=== PATIENT | male | born 1960 | race Caucasian/White ===

== ENCOUNTER → 2017-02-17 | Outpatient (CLI) | payer BC ==
[~2017-02-17] MED LIST: ACYCLOVIR800 MG PO; ATORVASTATIN CA40 M1 PO
[2017-02-17 10:40] LABS: CREATININE 1.36 mg/dL (0.70-1.30)
== END | disposition home or self-care (01) ==
LOC: LAB 10:12 → CT 10:30
PROVIDERS: Internal Medicine
DX: R51 Headache (principal); H53.9 Unspecified visual disturbance

== ENCOUNTER 2017-08-10 21:38 | Inpatient (IN) | payer BC ==
[~2017-08-10] VITALS: Ht 185 cm; Wt 105.0 kg
--- NOTE | ~2017-08-10 | WRIGHTHP ---
[place], [place] PATIENT HISTORY AND PHYSICAL EXAM NAME: ROCKY COSTA [facility] #: [id number] UNIT #: [id number] ROOM: 407 DOCTOR: KIANA GAN MD BIRTHDATE: [birth year] DOS: 08/11/2017 HISTORY OF PRESENT ILLNESS: The patient is a 57-year-old gentleman with a past medical history of mixed hyperlipidemia, vitamin D deficiency. The patient presented to the Emergency Department when he was getting a bowel prep for his colonoscopy with acute right lower quadrant pain. The patient was seen in the Emergency Department and found to have acute appendicitis on CT of the abdomen and pelvis, without any periappendiceal abscess or free intraperitoneal air. The patient was taken for surgery by Dr. Grace and appendectomy and removal of a small umbilical hernia was performed. Following surgery, the patient is complaining of severe abdominal pain and says that if he is not getting present medications for pain, which he is getting at the hospital and he is sent home, he will have to come right back to the Emergency Department. The patient also has been nauseous off and on. No chest pain. No shortness of breath. No GI or urinary symptoms'. REVIEW OF SYSTEMS: LUNGS: No increasing shortness of breath. GASTROINTESTINAL: The patient with recurrent nausea, vomiting. No diarrhea or constipation. CARDIOVASCULAR: No chest pains or palpitations. SOCIAL HISTORY: The patient denies smoking cigarettes, alcohol and drug abuse. FAMILY HISTORY: Noncontributory. ALLERGIES: No known drug allergies. PRESENT MEDICATIONS: Zofran, hydroxyzine, metoclopramide, Dilaudid, Vicodin and Zosyn. PHYSICAL EXAMINATION: GENERAL: Alert, oriented x 3, in no visible distress. VITAL SIGNS: Blood pressure 122/68, heart rate of 67 beats per minute, breathing 16 times per minute, afebrile. HEENT AND NECK: Extraocular movements are intact. Sclerae are anicteric. Oral mucosa is moist and clean. No obvious facial weakness. Neck is supple without any lymphadenopathy. No thyromegaly. No JVD. No carotid arterial bruits. LUNGS: Clear to auscultation. No wheezing. No rhonchi. CARDIOVASCULAR SYSTEM: Heart rate is regular in rate and rhythm. S1 and S2 normally audible. No significant murmur or any other abnormal cardiac sounds. ABDOMEN: Tenderness in the abdomen all over. No rigidity, guarding or rebound tenderness. Bowel sounds are present. EXTREMITIES: Without significant cyanosis or edema. Warm to touch. CENTRAL NERVOUS SYSTEM: Alert and oriented x 3. Cranial nerves II-XII are intact. Speech is normal. The patient is able to move all extremities. Normal muscle strength. Deep tendon reflexes are equal on both sides. Plantars were downgoing. [place], [place] PATIENT HISTORY AND PHYSICAL EXAM NAME: ROCKY COSTA UNIT #: [id number] ROOM: 407 DOCTOR: ELVIA CARABALLO,KIANA Kimball BIRTHDATE: [birth year] LABORATORY DATA: Chest x-ray without any acute abnormality, normal. White cell count elevated to 18,000 on CBC, but normal serum electrolytes, although sugar was elevated to 157. IMPRESSION AND PLAN: 1. The patient with acute appendicitis, status post appendectomy by Dr. Grace, apparently uncomplicated. 2. Small umbilical hernia repair. 3. Significant for surgical pains. We will keep the patient overnight and he will receive Dilaudid for pain and Zofran for nausea and vomiting and I will encourage him to ambulate in the hallways and if he is doing much better, he can be discharged to home tomorrow. 4. Repeat CBC and serum electrolytes in the morning and I will continue Zosyn for now because he did have an infected appendix with leukocytosis yesterday. KIANA GAN MD CM:HISPHYS:PATIENT HISTORY AND PHYSICAL EXAMINATION 26 45 KIANA GAN MD 08/11/171844 interface
--- NOTE | ~2017-08-10 | O ---
[place], [place] OPERATIVE NOTE [id number] UNIT #: [id number] ROOM: 407 DOCTOR: WASHINGTON GRACE MD BIRTHDATE: [birth year] DOS: 08/11/2017 PREOPERATIVE DIAGNOSIS: Acute appendicitis. POSTOPERATIVE DIAGNOSIS: Acute appendicitis. PROCEDURE: Laparoscopic appendectomy. SURGEON: Washington Grace MD [employer] SUPERVISOR: MS4. ANESTHESIA: GET. INDICATIONS: This is a 57-year-old gentleman admitted with acute appendicitis who is here for the above-mentioned procedure. The procedure and its complications were explained to the patient in detail preoperatively. Complications that were discussed included but were not limited to bleeding, infection, hematoma/seroma/abscess formation, prolonged postoperative pain, damage to underlying vital structures and incisional hernia formation. He agreed to proceed. DESCRIPTION OF PROCEDURE: After identifying the patient, the patient was brought to the operating suite and laid in the supine position. After induction of general anesthesia, a Patton catheter was placed in the urinary bladder and left upper extremity was tucked to the patient's side. The parts were then painted and draped in the usual sterile fashion. A time-out procedure was called. An incision across the umbilicus was made in a transverse fashion. The skin and the subcutaneous tissue were incised. The umbilical area was found to have a small umbilical hernia with the contents being preperitoneal fat. This fat was excised with the help of electrocautery and sent for histopathological diagnosis. Thereafter, the edges of the fascia were secured with the help of 0 Vicryl stay sutures on either side. A 12 mm Eleazar port was introduced into the peritoneal cavity and a pneumoperitoneum was created. Under direct vision, a left lower quadrant incision of 10 mm and suprapubic incision of 5 mm was made and appropriate size ports were introduced. The patient was placed in Trendelenburg, right side up position in order to better visualize the appendix. The appendix was visualized right next to the cecum and it was found to be acutely inflamed. It was held up with the help of an Endo [place] forceps and the base of the appendix as well as the mesoappendix were stapled across with the help of an Endo-TIERNEY (vascular) stapler, thus the appendix was then placed in an EndoCatch bag and removed from the peritoneal cavity and sent for histopathological diagnosis. Thereafter, the appendicular stump was visualized and there was no bleeding seen. The suprapubic and the left lower quadrant ports were then removed, and there was no bleeding seen. The umbilical port was also removed and the 2 stay sutures were tied together as well as additional sutures were taken with 0 Vicryl in order to close the fascial defect. Thereafter, the edges of the skin were infiltrated with 1% plain lidocaine and the edges were approximated with the help of 4-0 Vicryl in a subcuticular running fashion. There were no complications. The patient was extubated [place], [place] OPERATIVE NOTE NAME: ROCKY COSTA UNIT #: [id number] ROOM: 407 DOCTOR: WASHINGTON GRACE MD BIRTHDATE: [birth year] uneventfully and the Patton catheter was also removed and he was brought back to the recovery in a stable fashion. There were no complications. Dr. Washington Grace, the attending surgeon, was present throughout the operating case. Washington Grace MD CM:OPRECORD:OPERATIVE NOTE [id number] WASHINGTON GRACE MD 08/11/17 0933 interface
[2017-08-10 21:41] VITALS: BP 149/96
[2017-08-10 22:16] LABS: BASO % 0.2 % (0.0-1.0); EOS % 0.1 % (1.0-4.0); HEMATOCRIT 49.1 % (42.0-52.0); HEMOGLOBIN 16.6 g/dl (14.0-18.0); LYMPH # 1.1 10*3/uL (1.3-4.4); LYMPH % 6.3 % (27.0-41.0); MEAN CELL VOLUME 93.7 fl (80.0-94.0); MEAN CORPUSCULAR HGB 31.7 pg (27.0-31.0); MEAN CORPUSCULAR HGB CONC 33.8 g/dl (33.0-37.0); MEAN PLATELET VOLUME 11.7 fl (9.6-12.3); MONO # 0.9 10*3/uL (0.1-1.0); MONO % 4.7 % (3.0-9.0); NEUT # 15.9 10*3/uL (2.3-7.9); NEUT % 88.3 % (47.0-73.0); PLATELET COUNT AUTOMATED 202 10*3/uL (130-400); RED BLOOD COUNT 5.24 10*6/uL (4.50-5.90); RED CELL DISTRI WIDTH 13.4 % (0-14.5)
[2017-08-10 22:32] LABS: ALBUMIN 4.2 gm/dl (3.1-4.5); ALKALINE PHOSPHATASE 90 U/L (45-117); BUN 15 mg/dl (7-24); CHLORIDE 102 mmol/L (98-107); CREATININE 1.27 mg/dL (0.70-1.30); LIPASE 125 U/L (73-393); POTASSIUM 4.4 mmol/L (3.5-5.1); SGOT/AST 27 IU/L (3-35); SGPT/ALT 42 U/L (12-78); SODIUM 135 mmol/L (136-145); TOTAL PROTEIN 7.7 gm/dL (6.4-8.2)
[2017-08-10 22:33] VITALS: BP 140/84
[2017-08-10 23:48] VITALS: BP 129/74
[2017-08-11] VITALS (16 sets, daily range): BP systolic 102–147; BP diastolic 52–82
[2017-08-11 01:03] LABS: INTERNATIONAL NORM RATIO 0.9 (2.0-3.5)
[2017-08-12] VITALS: BP 150/60
[2017-08-12 07:38] LABS: BASO % 0.4 % (0.0-1.0); EOS # 0.2 10*3/uL (0.0-0.4); EOS % 2.5 % (1.0-4.0); LYMPH # 1.7 10*3/uL (1.3-4.4); MEAN CELL VOLUME 94.8 fl (80.0-94.0); MEAN CORPUSCULAR HGB 31.4 pg (27.0-31.0); MEAN CORPUSCULAR HGB CONC 33.1 g/dl (33.0-37.0); MONO # 0.6 10*3/uL (0.1-1.0); MONO % 7.9 % (3.0-9.0); NEUT # 5.3 10*3/uL (2.3-7.9); NEUT % 66.9 % (47.0-73.0); PLATELET COUNT AUTOMATED 167 10*3/uL (130-400); RED BLOOD COUNT 4.43 10*6/uL (4.50-5.90); WHITE BLOOD COUNT 7.9 10*3/uL (4.8-10.8)
[2017-08-12 07:39] LABS: HEMOGLOBIN 13.9 g/dl (14.0-18.0)
[2017-08-12 07:49] LABS: BUN 12 mg/dl (7-24); CHLORIDE 106 mmol/L (98-107); CREATININE 1.23 mg/dL (0.70-1.30); POTASSIUM 3.8 mmol/L (3.5-5.1); SODIUM 141 mmol/L (136-145)
[2017-08-12 08:00] VITALS: BP 127/84
== END 2017-08-12 13:30 | disposition home or self-care (01) | DRG 343 ==
LOC: ED 21:38 → 4E 08-11 00:50 → EDHOLD 08-11 00:50 → 4E 08-11 01:01
PROVIDERS: Internal Medicine; Physician Assistant
DX: K37 Unspecified appendicitis (principal); E78.5 Hyperlipidemia, unspecified; Z72.89 Other problems related to lifestyle; K35.80 Unspecified acute appendicitis; Z79.899 Other long term (current) drug therapy; K44.9 Diaphragmatic hernia without obstruction or gangrene

== ENCOUNTER → 2018-04-06 | Day surgery (SDC) | payer OTHER ==
[~2018-04-06] VITALS: Ht 187.9 cm; Wt 97.5 kg
--- NOTE | ~2018-04-06 | PROC NOTE ---
[place], [place] PROCEDURE NOTE NAME: ROCKY COSTA UNIT #: [id number] ROOM: DOCTOR: WASHINGTON GRACE MD BIRTHDATE: [birth year] DOS: 04/06/2018 PREOPERATIVE DIAGNOSIS: Screening examination, history of colon polyps. POSTOPERATIVE DIAGNOSIS: Normal colon. PROCEDURE: Colonoscopy. ENDOSCOPIST: Washington Grace MD TRUCK DRIVER HEAVY: FAMILIA. ANESTHESIA: MAC. INDICATIONS: This is a 57-year-old male who had a history of previous colonoscopy with polypectomy done in the past who is here for the above-mentioned procedure. The procedure and its complications were explained to the patient in detail preoperatively. Complications that were discussed included but were not limited to, bleeding, colon perforation, missed lesions, and prolonged pain. He agreed to proceed. DESCRIPTION OF PROCEDURE: After identifying the patient, the patient was brought to the endoscopy suite and placed in left lateral position. After IV sedation was administered, a timeout procedure was called and a digital rectal exam was performed. This was within normal limits. An adult colonoscope was then introduced into the anal canal and advanced sequentially into the rectum, sigmoid colon, descending colon, transverse colon and ascending colon up to the cecum. Upon reaching the cecum, the scope was withdrawn. The prep was found to be optimal. Upon The total withdrawal time at this point now from the cecum was approximately 8 minutes. There were no lesions that could be identified in the entirety of the colon. There was found to be minimal internal hemorrhoids which were uncomplicated on retroflexion of the scope in the rectum. The scope was withdrawn and the patient was brought back to the recovery room in stable fashion. There were no complications. Dr. Washington Grace, the attending endoscopist, was present throughout the operating case. Based on these findings, the patient is recommended to have another colonoscopy in 10 years or sooner should he find any new symptoms. These findings were discussed with the patient's family in the recovery room. [place], [place] PROCEDURE NOTE NAME: ROCKY COSTA UNIT #: [id number] ROOM: DOCTOR: WASHINGTON GRACE MD BIRTHDATE: [birth year] Washington Grace MD CM:PROCNOTE:PROCEDURE NOTE 0821 1720 WASHINGTON GRACE MD
[2018-04-06 07:21] VITALS: BP 139/85
[2018-04-06 08:15] VITALS: BP 106/70
[2018-04-06 08:21] VITALS: BP 115/68
[2018-04-06 08:43] VITALS: BP 120/77
== END | disposition home or self-care (01) ==
LOC: SDC 04-03 08:45
DX: Z12.11 Encounter for screening for malignant neoplasm of colon (principal); Z86.010 Personal history of colon polyps; K64.8 Other hemorrhoids; E78.5 Hyperlipidemia, unspecified; E78.00 Pure hypercholesterolemia, unspecified; M10.9 Gout, unspecified; Z98.890 Other specified postprocedural states; Z90.49 Acquired absence of other specified parts of digestive tract; Z79.899 Other long term (current) drug therapy; Z87.891 Personal history of nicotine dependence

== ENCOUNTER 2018-11-19 06:47 | Emergency (ER) | payer OTHER ==
[~2018-11-19] VITALS: Wt 90.7 kg
--- NOTE | ~2018-11-19 | EKG ---
[place], [place] ELECTROCARDIOGRAM REPORT NAME: ROCKY COSTA UNIT #: [id number] ROOM: DOCTOR: EPIPHANY DRAFT REPORT BIRTHDATE: [birth year] [facility] Test Date: 2018-11-19 Test Time: 09:55:03 Pat Name: ROCKY COSTA Department: Room: Gender: Mysql Database Developer: : 1960 Requested By: JAZMINE PETIT Order Number: [id number] Reading MD: Ashlyn Ashley MD Measurements Intervals [place] Rate: 64 P: 23 NM: 164 QRS: -27 QRSD: 101 T: 21 QT: 416 QTc: 430 Interpretive Statements Sinus rhythm Borderline left axis deviation Electronically Signed On 11-20-2018 13:50:07 PDT by Ashlyn Ashley MD CM:EKGRPT:ELECTROCARDIOGRAM REPORT [id number] JAZMINE HORTON DRAFT REPORT JAZMINE PETIT DO
--- NOTE | ~2018-11-19 | EKG ---
[place], [place] ELECTROCARDIOGRAM REPORT NAME: ROCKY COSTA UNIT #: [id number] ROOM: DOCTOR: EPIPHANY DRAFT REPORT BIRTHDATE: [birth year] [facility] Test Date: 2018-11-19 Test Time: 06:50:25 Pat Name: ROCKY COSTA Department: Room: Gender: Lap Checker: : 1960 Requested By: JAZMINE PETIT Order Number: [id number] Reading MD: Ashlyn Ashley MD Measurements Intervals [place] Rate: 76 P: 56 SD: 158 QRS: -30 QRSD: 99 T: 38 QT: 404 QTc: 455 Interpretive Statements Sinus rhythm Left axis deviation Electronically Signed On 11-20-2018 13:49:58 PDT by Ashlyn Ashley MD CM:EKGRPT:ELECTROCARDIOGRAM REPORT [id number] JAZMINE HORTON DRAFT REPORT JAZMINE PETIT DO
[2018-11-19 07:06] LABS: BASO % 0.4 % (0.0-1.0); EOS # 0.2 10*3/uL (0.0-0.4); EOS % 2.9 % (1.0-4.0); HEMATOCRIT 51.2 % (42.0-52.0); LYMPH # 1.9 10*3/uL (1.3-4.4); LYMPH % 25.2 % (27.0-41.0); MEAN CELL VOLUME 95.7 fl (80.0-94.0); MEAN CORPUSCULAR HGB 31.8 pg (27.0-31.0); MEAN CORPUSCULAR HGB CONC 33.2 g/dl (33.0-37.0); MEAN PLATELET VOLUME 12.1 fl (9.6-12.3); MONO # 1.2 10*3/uL (0.1-1.0); MONO % 15.4 % (3.0-9.0); NEUT # 4.2 10*3/uL (2.3-7.9); PLATELET COUNT AUTOMATED 236 10*3/uL (130-400); RED BLOOD COUNT 5.35 10*6/uL (4.50-5.90); RED CELL DISTRI WIDTH 13.3 % (0-14.5); WHITE BLOOD COUNT 7.5 10*3/uL (4.8-10.8)
[2018-11-19 07:17] LABS: INTERNATIONAL NORM RATIO 0.9 (2.0-3.5)
[2018-11-19 07:25] LABS: ALBUMIN 3.4 gm/dl (3.1-4.5); BUN 15 mg/dl (7-24); CHLORIDE 107 mmol/L (98-107); POTASSIUM 3.6 mmol/L (3.5-5.1); SGOT/AST 26 IU/L (3-35); SGPT/ALT 36 U/L (12-78); SODIUM 138 mmol/L (136-145); TOTAL PROTEIN 7.1 gm/dL (6.4-8.2)
[2018-11-19 07:28] LABS: ALKALINE PHOSPHATASE 105 U/L (45-117)
== END 2018-11-19 11:32 | disposition short-term general hospital (02) ==
LOC: ED 06:47
PROVIDERS: Student in an Organized Health Care Education/Training Program
DX: R07.9 Chest pain, unspecified (principal); R79.89 Other specified abnormal findings of blood chemistry; M79.602 Pain in left arm; M54.2 Cervicalgia; R51 Headache; E78.5 Hyperlipidemia, unspecified; Z79.899 Other long term (current) drug therapy

== ENCOUNTER → 2018-11-27 | Outpatient (CLI) | payer OTHER | END | disposition home or self-care (01) | LOC: RAD 11:24 | DX: J18.9 Pneumonia, unspecified organism (principal); R07.9 Chest pain, unspecified ==

== ENCOUNTER → 2019-06-20 | Outpatient (CLI) | payer OTHER ==
[2019-06-20 16:09] LABS: BASO % 0.4 % (0.0-1.0); EOS # 0.1 10*3/uL (0.0-0.4); EOS % 0.6 % (1.0-4.0); HEMATOCRIT 48.3 % (42.0-52.0); LYMPH # 1.9 10*3/uL (1.3-4.4); LYMPH % 23.3 % (27.0-41.0); MEAN CELL VOLUME 99.2 fl (80.0-94.0); MEAN CORPUSCULAR HGB 32.9 pg (27.0-31.0); MEAN CORPUSCULAR HGB CONC 33.1 g/dl (33.0-37.0); MEAN PLATELET VOLUME 11.8 fl (9.6-12.3); MONO # 0.9 10*3/uL (0.1-1.0); MONO % 11.3 % (3.0-9.0); NEUT # 5.2 10*3/uL (2.3-7.9); NEUT % 63.9 % (47.0-73.0); PLATELET COUNT AUTOMATED 259 10*3/uL (130-400); RED BLOOD COUNT 4.87 10*6/uL (4.50-5.90); RED CELL DISTRI WIDTH 13.6 % (0-14.5); WHITE BLOOD COUNT 8.2 10*3/uL (4.8-10.8)
[2019-06-20 16:44] LABS: ALBUMIN 3.9 gm/dl (3.1-4.5); BUN 15 mg/dl (7-24); CHLORIDE 108 mmol/L (98-107); CHOLESTEROL 156 mg/dL (<200); CREATININE 1.24 mg/dL (0.70-1.30); POTASSIUM 4.2 mmol/L (3.5-5.1); SGOT/AST 20 IU/L (3-35); SGPT/ALT 38 U/L (12-78); SODIUM 140 mmol/L (136-145); URIC ACID 7.5 mg/dL (3.5-7.2)
[2019-06-20 16:52] LABS: ALKALINE PHOSPHATASE 81 U/L (45-117); FREE T4 0.91 ng/dl (0.76-1.46); HDL CHOLESTEROL 61 mg/dl (40-60); LDL CHOLESTEROL 62 mg/dL (9-159); TOTAL PROTEIN 7.3 gm/dL (6.4-8.2); TRIGLYCERIDES 167 mg/dl (<150); VLDL CHOLESTEROL 33 mg/dL (6-40)
[2019-06-20 17:00] LABS: VITAMIN D, 25-HYDROXY 42.2 ng/mL (30-100)
== END | disposition home or self-care (01) ==
LOC: LAB 15:06
PROVIDERS: Internal Medicine
DX: Z12.5 Encounter for screening for malignant neoplasm of prostate (principal); Z13.1 Encounter for screening for diabetes mellitus; Z00.00 Encounter for general adult medical examination without abnormal findings; I10 Essential (primary) hypertension; E78.2 Mixed hyperlipidemia; M10.072 Idiopathic gout, left ankle and foot; E55.9 Vitamin D deficiency, unspecified

== ENCOUNTER → 2019-06-26 | Outpatient (CLI) | payer OTHER | END | disposition home or self-care (01) | LOC: RAD 15:56 | DX: M19.041 Primary osteoarthritis, right hand (principal) ==

== ENCOUNTER → 2020-11-03 | Outpatient (CLI) | payer BC ==
[2020-11-03 07:56] LABS: BASO # 0.1 10*3/uL (0.0-0.1); BASO % 0.7 % (0.0-1.0); EOS # 0.1 10*3/uL (0.0-0.4); EOS % 1.4 % (1.0-4.0); HEMATOCRIT 49.2 % (42.0-52.0); LYMPH # 1.9 10*3/uL (1.3-4.4); LYMPH % 27.5 % (27.0-41.0); MEAN CORPUSCULAR HGB 31.6 pg (27.0-31.0); MEAN CORPUSCULAR HGB CONC 32.5 g/dl (33.0-37.0); MEAN PLATELET VOLUME 11.6 fl (9.6-12.3); MONO # 0.9 10*3/uL (0.1-1.0); MONO % 13.1 % (3.0-9.0); NEUT # 3.9 10*3/uL (2.3-7.9); NEUT % 56.9 % (47.0-73.0); PLATELET COUNT AUTOMATED 243 10*3/uL (130-400); RED BLOOD COUNT 5.07 10*6/uL (4.50-5.90); RED CELL DISTRI WIDTH 13.5 % (0-14.5); WHITE BLOOD COUNT 6.9 10*3/uL (4.8-10.8)
[2020-11-03 08:17] LABS: BUN 11 mg/dl (7-24); CHLORIDE 109 mmol/L (98-107); CHOLESTEROL 152 mg/dL (<200); CREATININE 1.07 mg/dL (0.70-1.30); LDL CHOLESTEROL 62 mg/dL (9-159); SGOT/AST 27 IU/L (3-35); SGPT/ALT 37 U/L (12-78); SODIUM 136 mmol/L (136-145); TRIGLYCERIDES 215 mg/dl (<150)
== END | disposition home or self-care (01) ==
LOC: LAB 07:29
PROVIDERS: ATTEND Internal Medicine Cardiovascular Disease
DX: E78.5 Hyperlipidemia, unspecified (principal); I24.8 Other forms of acute ischemic heart disease

== ENCOUNTER → 2021-07-15 | Outpatient (CLI) | payer OTHER ==
[2021-07-15 13:35] LABS: BASO % 0.5 % (0.0-1.0); EOS # 0.1 10*3/uL (0.0-0.4); EOS % 1.2 % (1.0-4.0); HEMATOCRIT 47.1 % (42.0-52.0); LYMPH # 2.1 10*3/uL (1.3-4.4); LYMPH % 31.3 % (27.0-41.0); MEAN CELL VOLUME 94.4 fl (80.0-94.0); MEAN CORPUSCULAR HGB 31.5 pg (27.0-31.0); MEAN CORPUSCULAR HGB CONC 33.3 g/dl (33.0-37.0); MEAN PLATELET VOLUME 11.4 fl (9.6-12.3); MONO # 0.7 10*3/uL (0.1-1.0); MONO % 10.5 % (3.0-9.0); NEUT # 3.7 10*3/uL (2.3-7.9); NEUT % 56.2 % (47.0-73.0); PLATELET COUNT AUTOMATED 240 10*3/uL (130-400); RED BLOOD COUNT 4.99 10*6/uL (4.50-5.90); RED CELL DISTRI WIDTH 13.4 % (0-14.5); WHITE BLOOD COUNT 6.6 10*3/uL (4.8-10.8)
[2021-07-15 13:53] LABS: ALKALINE PHOSPHATASE 84 U/L (45-117); BUN 15 mg/dl (7-24); CHLORIDE 108 mmol/L (98-107); CHOLESTEROL 144 mg/dL (<200); CREATININE 1.28 mg/dL (0.70-1.30); FREE T4 0.99 ng/dl (0.76-1.46); LDL CHOLESTEROL 61 mg/dL (9-159); POTASSIUM 3.9 mmol/L (3.5-5.1); SGOT/AST 25 IU/L (3-35); SGPT/ALT 43 U/L (12-78); SODIUM 140 mmol/L (136-145); TOTAL PROTEIN 6.9 gm/dL (6.4-8.2); TRIGLYCERIDES 165 mg/dl (<150); URIC ACID 6.7 mg/dL (3.5-7.2)
[2021-07-15 15:16] LABS: VITAMIN D, 25-HYDROXY 36.6 ng/mL (30-100)
== END | disposition home or self-care (01) ==
LOC: LAB 13:17
PROVIDERS: ATTEND Internal Medicine
DX: Z13.1 Encounter for screening for diabetes mellitus (principal); Z12.5 Encounter for screening for malignant neoplasm of prostate; Z00.00 Encounter for general adult medical examination without abnormal findings; M1A.9XX0 Chronic gout, unspecified, without tophus (tophi); E78.2 Mixed hyperlipidemia; E55.9 Vitamin D deficiency, unspecified

== ENCOUNTER → 2021-08-30 | Outpatient (CLI) | payer OTHER | END | disposition home or self-care (01) | LOC: ORTHO 01:40 | PROVIDERS: ATTEND Orthopaedic Surgery | DX: M25.561 Pain in right knee (principal) ==

== ENCOUNTER → 2021-10-14 | Day surgery (SDC) | payer OTHER ==
[~2021-10-14] VITALS: Ht 187.9 cm; Wt 98.9 kg
[~2021-10-14] MED LIST changes: +ASPIRIN81 M1 PO; +DAILY VALUE1 EACH PO; +HYDROCODONE-AC1 EAC1 PO; +VITAMIN D350 MCG PO
[2021-10-14 06:26] VITALS: BP 131/80
[2021-10-14 08:36] VITALS: BP 123/77
[2021-10-14 08:51] VITALS: BP 111/57
[2021-10-14 09:06] VITALS: BP 122/2; BP 122/72
[2021-10-14 09:21] VITALS: BP 142/75
[2021-10-14 09:36] VITALS: BP 139/76
== END | disposition home or self-care (01) ==
LOC: SDC 10-11 14:00
PROVIDERS: ATTEND Orthopaedic Surgery
DX: S83.241A Other tear of medial meniscus, current injury, right knee, initial encounter (principal); M87.061 Idiopathic aseptic necrosis of right tibia; E78.00 Pure hypercholesterolemia, unspecified; M10.9 Gout, unspecified; Z87.891 Personal history of nicotine dependence; Z98.890 Other specified postprocedural states; X58.XXXA Exposure to other specified factors, initial encounter; Y93.89 Activity, other specified; Y92.89 Other specified places as the place of occurrence of the external cause; Y99.8 Other external cause status

== ENCOUNTER 2021-11-24 10:27 | Observation (INO) | payer OTHER ==
[~2021-11-24] VITALS: Ht 188 cm; Wt 96.2 kg
[2021-11-24] VITALS (7 sets, daily range): BP systolic 129–162; BP diastolic 64–100
[2021-11-24 11:34] LABS: BASO # 0.1 10*3/uL (0.0-0.1); BASO % 0.5 % (0.0-1.0); EOS # 0.2 10*3/uL (0.0-0.4); EOS % 2.4 % (1.0-4.0); HEMATOCRIT 48.9 % (42.0-52.0); LYMPH # 1.5 10*3/uL (1.3-4.4); LYMPH % 16.5 % (27.0-41.0); MEAN CELL VOLUME 94.2 fl (80.0-94.0); MEAN CORPUSCULAR HGB 31.4 pg (27.0-31.0); MEAN CORPUSCULAR HGB CONC 33.3 g/dl (33.0-37.0); MEAN PLATELET VOLUME 11.9 fl (9.6-12.3); MONO # 0.9 10*3/uL (0.1-1.0); MONO % 9.5 % (3.0-9.0); NEUT # 6.6 10*3/uL (2.3-7.9); NEUT % 70.4 % (47.0-73.0); PLATELET COUNT AUTOMATED 272 10*3/uL (130-400); RED BLOOD COUNT 5.19 10*6/uL (4.50-5.90); RED CELL DISTRI WIDTH 13.8 % (0-14.5); WHITE BLOOD COUNT 9.4 10*3/uL (4.8-10.8)
[2021-11-24 12:08] LABS: ACT PARTIAL THROMBO TIME 27.3 SECONDS (20.0-32.1)
[2021-11-24 12:15] LABS: ALKALINE PHOSPHATASE 111 U/L (45-117); BUN 13 mg/dl (7-24); CHLORIDE 106 mmol/L (98-107); CREATININE 1.15 mg/dL (0.70-1.30); POTASSIUM 4.3 mmol/L (3.5-5.1); SGOT/AST 22 IU/L (3-35); SGPT/ALT 31 U/L (12-78); SODIUM 137 mmol/L (136-145); TOTAL PROTEIN 7.1 gm/dL (6.4-8.2)
[2021-11-25] VITALS (8 sets, daily range): BP systolic 115–147; BP diastolic 70–93
[2021-11-25 08:04] LABS: BASO % 0.4 % (0.0-1.0); EOS # 0.2 10*3/uL (0.0-0.4); EOS % 2.5 % (1.0-4.0); HEMATOCRIT 46.8 % (42.0-52.0); LYMPH # 1.5 10*3/uL (1.3-4.4); LYMPH % 16.4 % (27.0-41.0); MEAN CELL VOLUME 93.6 fl (80.0-94.0); MEAN CORPUSCULAR HGB 31.4 pg (27.0-31.0); MEAN CORPUSCULAR HGB CONC 33.5 g/dl (33.0-37.0); MONO # 0.8 10*3/uL (0.1-1.0); MONO % 8.4 % (3.0-9.0); NEUT # 6.6 10*3/uL (2.3-7.9); NEUT % 71.8 % (47.0-73.0); PLATELET COUNT AUTOMATED 243 10*3/uL (130-400); RED CELL DISTRI WIDTH 13.6 % (0-14.5); WHITE BLOOD COUNT 9.3 10*3/uL (4.8-10.8)
[2021-11-25 08:19] LABS: BUN 13 mg/dl (7-24); CHLORIDE 105 mmol/L (98-107); CREATININE 1.02 mg/dL (0.70-1.30); SODIUM 139 mmol/L (136-145)
[2021-11-25] MEDS ORDERED: ALLOPURINOL100 MG PO (08:59)
[2021-11-25] MEDS ORDERED: DICLOFENAC SOD50 MG PO (08:59)
[2021-11-25] MEDS ORDERED: METOPROLOL SUCC50 M1 PO (09:00)
[2021-11-25] MEDS ORDERED: FENOFIBRATE48 M1 PO (09:00)
[2021-11-26] VITALS: BP 130/83
[2021-11-26 04:00] VITALS: BP 136/91
[2021-11-26 05:24] LABS: BUN 21 mg/dl (7-24); CHLORIDE 105 mmol/L (98-107); CREATININE 1.13 mg/dL (0.70-1.30); POTASSIUM 3.7 mmol/L (3.5-5.1); SODIUM 138 mmol/L (136-145)
[2021-11-26 06:07] LABS: BASO # 0.1 10*3/uL (0.0-0.1); BASO % 0.7 % (0.0-1.0); EOS # 0.4 10*3/uL (0.0-0.4); EOS % 3.9 % (1.0-4.0); HEMATOCRIT 45.6 % (42.0-52.0); LYMPH # 2.2 10*3/uL (1.3-4.4); LYMPH % 24.6 % (27.0-41.0); MEAN CELL VOLUME 93.3 fl (80.0-94.0); MEAN CORPUSCULAR HGB 31.5 pg (27.0-31.0); MEAN CORPUSCULAR HGB CONC 33.8 g/dl (33.0-37.0); MEAN PLATELET VOLUME 11.5 fl (9.6-12.3); MONO # 0.8 10*3/uL (0.1-1.0); NEUT # 5.6 10*3/uL (2.3-7.9); PLATELET COUNT AUTOMATED 240 10*3/uL (130-400); RED BLOOD COUNT 4.89 10*6/uL (4.50-5.90); RED CELL DISTRI WIDTH 13.4 % (0-14.5); WHITE BLOOD COUNT 9.1 10*3/uL (4.8-10.8)
[2021-11-26 08:00] VITALS: BP 135/81
[2021-11-26 12:00] VITALS: BP 133/85
[2021-11-26 16:00] VITALS: BP 129/78
[2021-11-26 20:00] VITALS: BP 137/79
[2021-11-27] VITALS: BP 135/79
[2021-11-27 04:00] VITALS: BP 133/76
[2021-11-27 08:00] VITALS: BP 131/84
[2021-11-27 12:00] VITALS: BP 127/77
[2021-11-27 16:00] VITALS: BP 133/62
[2021-11-27 20:00] VITALS: BP 113/81
[2021-11-28] VITALS: BP 139/97
[2021-11-28 08:00] VITALS: BP 142/82
[2021-11-28 12:00] VITALS: BP 112/74
[2021-11-28 16:00] VITALS: BP 128/90
[2021-11-28 20:00] VITALS: BP 152/83
[2021-11-29] VITALS: BP 142/88
[2021-11-29] MEDS ORDERED: ELIQUIS5 M1 PO (07:33)
[2021-11-29 08:00] VITALS: BP 153/87
== END 2021-11-29 11:18 | disposition home or self-care (01) ==
LOC: ED 10:28 → ICCU 11-25 11:49 → EDHOLD 11-25 11:49 → 5E 11-25 11:49 → ICCU 11-25 16:20 → 5E 11-27 18:18
PROVIDERS: Emergency Medicine; Physician Assistant; ADMIT Internal Medicine; ATTEND Internal Medicine
DX: I82.621 Acute embolism and thrombosis of deep veins of right upper extremity (principal); I10 Essential (primary) hypertension; I26.99 Other pulmonary embolism without acute cor pulmonale; J96.01 Acute respiratory failure with hypoxia; M19.90 Unspecified osteoarthritis, unspecified site; E78.2 Mixed hyperlipidemia; E55.9 Vitamin D deficiency, unspecified; Z79.82 Long term (current) use of aspirin; Z79.01 Long term (current) use of anticoagulants; Z79.899 Other long term (current) drug therapy; Z88.8 Allergy status to other drugs, medicaments and biological substances

== ENCOUNTER → 2022-09-21 | Outpatient (CLI) | payer OTHER ==
[~2022-09-21] MED LIST changes: +ALLOPURINOL100 MG PO; +DICLOFENAC SOD50 MG PO; +ELIQUIS5 M1 PO; +FENOFIBRATE48 M1 PO; +METOPROLOL SUCC50 M1 PO
== END | disposition home or self-care (01) ==
LOC: US 12:23
PROVIDERS: ATTEND Internal Medicine
DX: I82.401 Acute embolism and thrombosis of unspecified deep veins of right lower extremity (principal)

== ENCOUNTER → 2024-02-29 | Outpatient (CLI) | payer MEDICAID ==
[2024-02-29 11:08] LABS: BASO % 0.3 % (0.0-1.0); EOS # 0.1 10*3/uL (0.0-0.4); EOS % 1.4 % (1.0-4.0); HEMATOCRIT 47.7 % (42.0-52.0); MEAN CORPUSCULAR HGB 31.4 pg (27.0-31.0); MEAN CORPUSCULAR HGB CONC 32.7 g/dl (33.0-37.0); MEAN PLATELET VOLUME 11.5 fl (9.6-12.3); MONO # 0.9 10*3/uL (0.1-1.0); MONO % 13.4 % (3.0-9.0); NEUT # 3.7 10*3/uL (2.3-7.9); NEUT % 58.7 % (47.0-73.0); PLATELET COUNT AUTOMATED 234 10*3/uL (130-400); RED BLOOD COUNT 4.97 10*6/uL (4.50-5.90); RED CELL DISTRI WIDTH 14.6 % (0-14.5); WHITE BLOOD COUNT 6.4 10*3/uL (4.8-10.8)
[2024-02-29 11:25] LABS: ALKALINE PHOSPHATASE 86 U/L (46-116); BUN 13 mg/dl (9-23); CHLORIDE 104 mmol/L (98-107); CHOLESTEROL 116 mg/dL (<200); FREE T4 1.19 ng/dl (0.89-1.76); LDL CHOLESTEROL 55 mg/dL (9-159); POTASSIUM 4.3 mmol/L (3.4-5.1); SGPT/ALT 41 U/L (5-49); TOTAL PROTEIN 6.8 gm/dL (6.0-8.0); TRIGLYCERIDES 127 mg/dl (<150)
[2024-02-29 11:53] LABS: VITAMIN D, 25-HYDROXY 52.4 ng/mL (30-100)
== END | disposition home or self-care (01) ==
LOC: LAB 10:23
PROVIDERS: ATTEND Internal Medicine
DX: I10 Essential (primary) hypertension (principal); E55.9 Vitamin D deficiency, unspecified; E78.2 Mixed hyperlipidemia; R53.83 Other fatigue; E53.9 Vitamin B deficiency, unspecified

== ENCOUNTER → 2025-02-28 | Outpatient (CLI) | payer OTHER | END | disposition home or self-care (01) | LOC: LAB 09:14 | PROVIDERS: ATTEND Orthopaedic Surgery | DX: M79.643 Pain in unspecified hand (principal) ==